=== PATIENT | female | born 1950 | race Caucasian/White ===

== ENCOUNTER 2016-10-28 05:34 | Day surgery (SDC) | payer MEDICARE, OTHER ==
[~2016-10-28 05:34] MED LIST: ALPHAGAN P5 ML RIGHT EYE; BETAGAN5 M1 RIGHT EYE; CALCIUM CARBON600 M2 PO; CRESTOR20 M1 PO; DILANTIN100 M1 PO; LOW DOSE ASPIRI81 M3 PO; LUTEIN20 M3 PO; MULTIPLE VITAM1 EAC2 PO; NEXIUM40 M1 PO; NORVASC10 M2 PO; VITAMIN D32000 UNI2 PO; XALATAN2.5 M1 OP
[2017-01-02] MEDS ORDERED: BACTRIM DS TAB1 EAC2 PO (19:33)
[2017-01-02] MEDS ORDERED: CIPRO500 M2 PO (19:34)
[2017-01-02] MEDS ORDERED: LOTRISONE CREAM15 GM TP (19:35)
[2017-01-02] MEDS ORDERED: FLUCONAZOLE150 M2 PO (19:37)
[2017-01-02] MEDS ORDERED: OCUFLOX5 ML OP (19:40)
[2017-01-02] MEDS ORDERED: PREDNISOLONE ACE5 M1 OP (19:43)
[2017-01-02] MEDS ORDERED: NEXIUM40 M1 PO (20:09)
[2017-01-02] MEDS ORDERED: DILANTIN100 M1 PO (20:10)
[2017-01-02] MEDS ORDERED: CRESTOR20 M1 PO (20:11)
[2017-01-02] MEDS ORDERED: PROBIOTIC1 EAC6 PO (20:11)
== END 2016-10-28 15:05 ==
LOC: SHSB 05:34 → ORW 07:33 → PACU 09:07 → SHSB 10:00
PROC: 0JQC0ZZ Repair Pelvic Region Subcutaneous Tissue and Fascia, Open Approach (ICD-10-PCS; principal; 2016-10-28)
PROC: 0TSD0ZZ Reposition Urethra, Open Approach (ICD-10-PCS; 2016-10-28)
DX: N81.10 Cystocele, unspecified (principal); N39.3 Stress incontinence (female) (male); I10 Essential (primary) hypertension; E78.5 Hyperlipidemia, unspecified; K21.9 Gastro-esophageal reflux disease without esophagitis; H40.9 Unspecified glaucoma; G40.909 Epilepsy, unspecified, not intractable, without status epilepticus; Z79.82 Long term (current) use of aspirin; Z79.899 Other long term (current) drug therapy; Z90.89 Acquired absence of other organs; Z90.710 Acquired absence of both cervix and uterus; Z98.890 Other specified postprocedural states
CPT/HCPCS: C1771; J1170; J7050